=== PATIENT | female | born 1975 | race Caucasian/White ===

== ENCOUNTER 2023-04-30 14:08 | Emergency (ER) | payer SELFPAY ==
[2023-04-30 14:20] VITALS: BP 125/79
--- NOTE | 2023-04-30 15:30 | ED.GENMED ---
History of Present Illness
General
Chief Complaint: Eye Problems
Source: patient
Exam Limitations: none
Time Seen by Provider: 04/30/23 15:18
Nursing documentation reviewed up to this point in time: agreed with
Travel History
Have you had any contact with someone who has COVID-19?: No
Do you have any symptoms of coronavirus? Fever > 100 degrees, chills, cough, shortness of breath, sore throat, loss of taste or smell, muscle aches, or headache?: No
History of Present Illness
History of Present Illness:
Patient states she place [facility] [facility] into [facility] to clean and was splashed in right eye. SHe states she flushed eye after with eye wash. Went to but was referred here. 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 Incident occurred 2 hours ago.
Past History
Past History
ED Past Medical History: None
ED Past Surgical History: Orthopedic
Review of Systems
Review of Systems
Allergies reviewed?: Yes
All Other Systems: ROS reviewed and negative except as documented in HPI and ROS
Constitutional: Reports no symptoms
EENT: Reports other (right eye irritation)
ABD/GI: Reports no symptoms
Musculoskeletal: Reports no symptoms
Skin: Reports no symptoms
Neurological: Reports no symptoms
Psychiatric: Reports no symptoms
Phy Exam
General Physical Exam
General Presentation: well appearing and no apparent distress
General age: appears stated age
General Skin: warm and dry
General Habitus: normal
Eye Exam
Eye Exam: PERRL, EOMI, cornea clear, conjunctiva normal, globe normal, visual acuity normal, visual richards normal and other (PH 7.0 prior to flush)
Type of Exam: slit lamp, simple and fluorescein
Musculoskeletal Exam
Musculoskeletal Exam: full ROM
Skin Exam
Skin Exam: normal color, warm/dry and no rash
Psychiatric Exam
Psychiatric Exam: normal mood/affect
Course
Orders/Labs/Results
Orders:
Orders
04/30/23 15:23
Fluorescein Sodium [Ful-Jerri] 1 mg .ROUTE .STK-MED ONE
Tetracaine HCl [Tetracaine 0.5% Ophthalmic Solution] 1 drop .ROUTE .STK-MED ONE
04/30/23 15:29
Eye Procedures- Treatment ONCE
Location: Right Eye
Type of Procedure: Irrigate - NSS
Comment: Chuck lens
04/30/23 16:24
Ofloxacin [Ocuflox] See Dose Instructions OPHTH NOW STA
Vital Signs
Initial and Last Documented VS:
Initial Vital Signs
Temp Pulse Resp BP Pulse Ox
97.6 F 92 18 125/79 97
04/30/23 14:20 04/30/23 14:20 04/30/23 14:20 04/30/23 14:20 04/30/23 14:20
Last Documented Vital Signs
Temp Pulse Resp BP Pulse Ox
97.6 F 92 18 125/79 97
04/30/23 14:20 04/30/23 14:20 04/30/23 14:20 04/30/23 14:20 04/30/23 14:20
*Critical Care Note
Total Time (30-74mins, 75-104mins- exclusive of procedures): Not Applicable
ED Attending Note
-
Portions of this chart may have been created with voice recognition software.� Occasional wrong word or��sound alike� substitutions may have occurred due to the inherent limitations of voice recognition software.
Discharge Plan
Departure
Patient Disposition: Home (Routine Discharge)
Date of Disposition: 04/30/23
Time of Disposition: 16:26
Patient with high blood pressure during this ER visit?: No
Condition: Good
Covid-19: Not Applicable
Discharge Problem:
Chemical exposure of eye
Instructions: How to Use Eye Drops, Foreign Body in Eye (DC)
Prescriptions:
New
ofloxacin [Ocuflox] 0.3 % drops
1 drp ophthalmic (eye) QID Qty: 5 0RF
Referrals:
Soo Beckett MD [Family Provider] -
Activity Restrictions/Additional Instructions:
Artificial tears, 1 drop to your right eye every hour while awake x 2 days. 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
Interventions
Interventions:
*Risk Screen - Suicide Last Done: 04/30/23 14:20
*General Assessment Last Done: 04/30/23 14:20
*Neglect/Abuse Screening Last Done: 04/30/23 14:20
*ED COVID-19 Vaccine History Last Done: 04/30/23 14:20
[2023-04-30] MEDS: OCUFLOX 2 DROP OPHTH (16:30)
== END 2023-04-30 16:41 | disposition home or self-care (01) ==
LOC: EMR 14:08
PROVIDERS: EMERGENCY PHYSICIAN Emergency Medicine; FAMILY PHYSICIAN Internal Medicine
DX: H53.8 Other visual disturbances (principal); Z77.098 Contact with and (suspected) exposure to other hazardous, chiefly nonmedicinal, chemicals
CPT/HCPCS: 99282